=== PATIENT | female | born 2000 | race Caucasian/White ===

== ENCOUNTER 2025-02-15 08:11 | Day surgery (SDC) | payer BC ==
[2025-02-14 14:14] VITALS: BMI 19.2
[2025-02-15] MEDS ORDERED: PROPOFOL 20 ML ONE (09:43)
[2025-02-15] MEDS ORDERED: Ondansetron PF 4 MG/2 ML Vial ONE (09:43)
[2025-02-15] MEDS ORDERED: Acetaminophen 500 MG TAB ONE (09:45)
[2025-02-15] MEDS ORDERED: CEFAZOLIN 2 GM VIAL ONE (09:58)
[2025-02-15] MEDS ORDERED: Meperidine HCl/PF 25 MG (1 mL) VIAL ONE (12:12)
== END 2025-02-15 13:00 | disposition home or self-care (01) ==
LOC: CSHSDC 08:11
PROVIDERS: ATTEND Podiatrist Foot & Ankle Surgery
DX: M20.42 Other hammer toe(s) (acquired), left foot (principal); M21.612 Bunion of left foot
CPT/HCPCS: C1713; J0665; J1100; J2175; J2250; J2405; J2704; J3010